=== PATIENT | female | born 1995 | race Caucasian/White ===

== ENCOUNTER → 2020-09-04 | Outpatient (CLI) | payer OTHER, SELFPAY ==
[2020-09-04 14:55] VITALS: BMI 26.2
[2020-09-04 17:08] LABS: Amphetamine Urine VISTA NEGATIVE (<1000 ng/mL); Barbiturate Urine VISTA NEGATIVE (< 200 ng/mL); Benzodiazepine Urine VISTA NEGATIVE (< 200 ng/mL); Cocaine Urine VISTA NEGATIVE (< 300 ng/mL); Ecstacy Urine VISTA NEGATIVE (< 500 ng/mL); Methadone Urine VISTA NEGATIVE (< 300 ng/mL); PCP Urine VISTA NEGATIVE (< 25 ng/mL); THC Urine VISTA NEGATIVE (< 50 ng/mL); Vista UDS pH Range 6
[2020-09-08 07:44] LABS: Chlamydia By Nucleic Acid AMP Negative (Negative)
[2020-09-08 08:03] LABS: Gonococcus By Nucleic Acid AMP Negative (Negative)
== END | disposition home or self-care (01) ==
PROVIDERS: Visit Provider Obstetrics & Gynecology
DX: Z34.00 Encounter for supervision of normal first pregnancy, unspecified trimester (principal); Z12.4 Encounter for screening for malignant neoplasm of cervix
CPT/HCPCS: 80307; 87086; 87088; 87491; 87591

== ENCOUNTER → 2020-10-02 12:55 | Outpatient (CLI) | payer OTHER, SELFPAY ==
[2020-09-04 14:55] VITALS: BMI 26.2
[2020-10-02 13:20] LABS: Absolute Lymphocyte Count 2.88 X10^3/uL (0.83-4.51); Absolute Neutrophil Count 8.7 X10^3/uL (2.0-7.7); Basophil# 0.04 X10^3/uL; Basophil% 0.3 % (0-1); Eosinophil# 0.15 X10^3/uL; Eosinophils% 1.2 % (0-5); Hematocrit 38.4 % (37-47); Lymphocyte # 2.88 X10^3/ul (4.0); Lymphocyte % 22.6 % (19-41); Mean Corp Hgb Conc 33.9 g/dL (32-36); Mean Corpuscular Hgb 29.4 pg (27.0-32.0); Mean Corpuscular Volume 86.9 fL (81-99); Mean Platelet Vol. 8.9 fl (6.2-12.0); Monocyte# 0.89 X10^3/uL; NRBC Flagged by Analyzer 0 % (0-5); Neutrophil # 8.73 X10^3/uL (2.7-7.7); Neutrophil % 68.5 % (47-70); Platelet Count 256 K/mm3 (150-450); RBC Distribution Width CV 13.5 % (11.6-14.6); RBC Distribution Width SD 42.5 fl (35.1-43.9); Red Blood Count 4.42 M/mm3 (4.2-5.4); White Blood Count 12.7 K/mm3 (4.4-11.0)
[2020-10-02 14:27] LABS: HIV - WCH Non-Reactive (Nonreactive); Hepatitis B Surface Antigen Non-Reactive (Nonreactive); Hepatitis C Antibody Non-Reactive (Nonreactive)
[2020-10-08 01:20] LABS: Rapid Plasmin Reagin (RPR) NONREACTIVE (NONREACTIVE)
== END ==
PROVIDERS: PCP Physician Assistant; Referring Provider Obstetrics & Gynecology; Visit Provider Obstetrics & Gynecology
DX: Z34.00 Encounter for supervision of normal first pregnancy, unspecified trimester (principal)
CPT/HCPCS: 36415; 85025; 86592; 86703; 86803; 86850; 86900; 86901; 87340

== ENCOUNTER → 2021-01-21 14:34 | Outpatient (CLI) | payer OTHER, SELFPAY ==
[2020-12-25 14:43] VITALS: BMI 31.8
[2021-01-21 14:50] LABS: Absolute Lymphocyte Count 2.24 X10^3/uL (0.83-4.51); Absolute Neutrophil Count 9.6 X10^3/uL (2.0-7.7); Basophil# 0.03 X10^3/uL; Basophil% 0.2 % (0-1); Eosinophil# 0.09 X10^3/uL; Eosinophils% 0.7 % (0-5); Hematocrit 35.4 % (37-47); Hemoglobin 11.8 g/dL (12.0-15.0); Lymphocyte # 2.24 X10^3/ul (4.0); Lymphocyte % 17.5 % (19-41); Mean Corp Hgb Conc 33.3 g/dL (32-36); Mean Corpuscular Hgb 30.1 pg (27.0-32.0); Mean Corpuscular Volume 90.3 fL (81-99); Monocyte# 0.78 X10^3/uL; Monocyte% 6.1 % (0-10); NRBC Flagged by Analyzer 0 % (0-5); Neutrophil # 9.57 X10^3/uL (2.7-7.7); Neutrophil % 74.6 % (47-70); Platelet Count 228 K/mm3 (150-450); RBC Distribution Width CV 13.7 % (11.6-14.6); RBC Distribution Width SD 44.7 fl (35.1-43.9); Red Blood Count 3.92 M/mm3 (4.2-5.4); White Blood Count 12.8 K/mm3 (4.4-11.0)
[2021-01-21 15:15] LABS: Glucose Challenge Gest 1H 50g 154 mg/dL (70-140)
[2021-01-22 08:43] LABS: Rubella IgG Reactive (Nonreactive)
== END ==
PROVIDERS: PCP Physician Assistant; Referring Provider Obstetrics & Gynecology; Visit Provider Obstetrics & Gynecology
DX: Z34.90 Encounter for supervision of normal pregnancy, unspecified, unspecified trimester (principal); Z01.84 Encounter for antibody response examination
CPT/HCPCS: 36415; 82950; 85025; 86762

== ENCOUNTER → 2021-01-25 06:46 | Outpatient (CLI) | payer OTHER, SELFPAY ==
[2021-01-21 15:08] VITALS: BMI 33.7
[2021-01-25 07:36] LABS: Glucose GTT-Gestation. Fasting 97 mg/dL (<105)
[2021-01-25 10:06] LABS: Glucose GTT-Gestational 1 Hr 198 mg/dL (<190)
[2021-01-25 10:06] LABS: Glucose GTT-Gestational 2 Hr 167 mg/dL (<165)
[2021-01-25 11:07] LABS: Glucose GTT-Gestational 3 Hr 117 L (<145)
== END ==
PROVIDERS: PCP Physician Assistant; Referring Provider Nurse Practitioner Women's Health; Visit Provider Nurse Practitioner Women's Health
DX: Z13.1 Encounter for screening for diabetes mellitus (principal)
CPT/HCPCS: 36415; 82951; 82952

== ENCOUNTER → 2021-02-17 13:40 | Outpatient (CLI) | payer OTHER, SELFPAY ==
[2021-02-03 10:58] VITALS: BMI 33.7
[2021-02-17 10:59] VITALS: BMI 33.6
--- NOTE | 2021-02-17 13:41 | US_ITS ---
STUDY: SECOND AND THIRD TRIMESTER OBSTETRICAL ULTRASOUND - LIMITED REASON FOR EXAM: Female, 26 years old. growth. LMP: 07/10/2020. PRIOR ULTRASOUND: None. TECHNIQUE: TECHNICAL QUALITY: Adequate. FINDINGS: There is a single intrauterine fetus. The fetus is in a cephalic presentation. There is demonstrated cardiac activity with a heart rate of 35 bpm. There is a normal amniotic fluid volume. The largest amniotic fluid pocket measures 5.03 cm. The amniotic fluid index (FERNIE) is 12.84 cm. The placenta is anterior in location and is not low lying. There are Grade 1 placental changes. The cervix measures 3.13 cm in length. BIOMETRY: BPD: 7.98 cm: 32 weeks, 0 days HC: 29.61 cm: 32 weeks, 5 days AC: 27.59 cm: 31 weeks, 4 days FL: 5.91 cm: 30 weeks, 5 days Age by LMP: 31 weeks, 5 days. JORJE by LMP: 04/16/2021. age by current US: 31 weeks, 6 days. JORJE by current US: 04/15/2021. Estimated weight: 1791 grams, +/- 269 grams, 30 percentile. Gender: Indeterminant US/OB Limited With Biometrics IMPRESSION: 1. Live single intrauterine at 31 weeks, 6 days. JORJE is 04/16/2021. This correlates with expected gestational age by LMP. 2. EFW of 1791 g. 3. FERNIE of 12.84 cm. 4. Anterior grade 1 placenta. 5. VERTEX presentation. Electronically Signed: Gómez Aggarwal DO at 22:36 EDT Tel [phone], Service support ,
== END ==
PROVIDERS: PCP Physician Assistant; Referring Provider Obstetrics & Gynecology; Visit Provider Obstetrics & Gynecology
DX: O24.419 Gestational diabetes mellitus in pregnancy, unspecified control (principal); Z3A.31 31 weeks gestation of pregnancy
CPT/HCPCS: 76816

== ENCOUNTER → 2021-03-19 13:15 | Outpatient (CLI) | payer OTHER, SELFPAY ==
[2021-02-03 10:58] VITALS: BMI 33.7
[2021-03-05 14:48] VITALS: BMI 34.0
--- NOTE | 2021-03-19 13:18 | US_ITS ---
STUDY: SECOND AND THIRD TRIMESTER OBSTETRICAL ULTRASOUND REASON FOR EXAM: Female, 26 years old growth LMP: 07/10/2020. TECHNIQUE: Transabdominal TECHNICAL QUALITY: Adequate. PRIOR ULTRASOUND: Comparison is made with prior study dated 02/17/2021. FINDINGS: There is a single intrauterine fetus. The fetus is in a cephalic presentation. There is demonstrated cardiac activity with a heart rate of 123 bpm. There is a normal amniotic fluid volume. The largest amniotic fluid pocket measures 4.1 cm. The amniotic fluid index (FERNIE) is 11.44 cm. The placenta is anterior in location and is not low lying. There are Grade 1 placental changes. The adnexal regions are not visualized. BIOMETRY: BPD: 8.74 cm: 35 weeks, 2 days HC: 31.44 cm: 35 weeks, 1 days AC: 32.9 cm: 36 weeks, 5 days FL: 6.44 cm: 33 weeks, 1 days CI: 83% FL/BPD: 74% FL/HC: FL/AC: 20% HC/AC: 0.96 age by current US: 34 weeks, 5 days. JORJE by current US: 04/25/2021. Estimated weight: 2753 grams, +/- 413 grams, 44 %. age by prior US: 36 weeks, 1 days. JORJE by prior US: 04/15/2021. Age by LMP: 36 weeks, 0 days. JORJE by LMP: 04/16/2021. US/OB Limited With Biometrics IMPRESSION: Single live intrauterine gestation with mean gestational age of 36 weeks and 1 day. The measurements obtained today follow within normal expected range. Electronically Signed: Ganga Justin MD at 14:58 EDT , Service support ,
== END ==
PROVIDERS: PCP Physician Assistant; Referring Provider Obstetrics & Gynecology; Visit Provider Obstetrics & Gynecology
DX: O24.419 Gestational diabetes mellitus in pregnancy, unspecified control (principal); Z3A.36 36 weeks gestation of pregnancy
CPT/HCPCS: 76816; 87081

== ENCOUNTER → 2021-04-09 15:15 | Outpatient (CLI) | payer OTHER, SELFPAY ==
[2021-03-05 14:48] VITALS: BMI 34.0
[2021-04-09 14:36] VITALS: BMI 34.0
== END ==
PROVIDERS: Obstetrics & Gynecology; PCP Physician Assistant; Visit Provider Obstetrics & Gynecology
DX: Z34.93 Encounter for supervision of normal pregnancy, unspecified, third trimester (principal)
CPT/HCPCS: 87635; C9803; U0002

== ENCOUNTER 2021-04-16 07:05 | Inpatient (IN) | payer OTHER, SELFPAY ==
[2021-04-02 14:52] VITALS: BMI 34.0
[2021-04-09 14:36] VITALS: BMI 34.0
[2021-04-16] VITALS (42 sets, daily range): BP systolic 118–176; BP diastolic 59–95; PULSE 79–145; RESP 18; TEMP 36.6–37.2; O2SAT 83–100; BMI 34.6
[2021-04-16] MEDS: Lactated Ringers 1,000 ML 50 ML IV (07:30)
--- NOTE | 2021-04-16 07:46 | HP.PCM.OB_ITS ---
HPI - General General Date of Admission: 04/16/21 HPI Narrative KENDRA HUBER, is a 26 F who presents as a at 40 weeks presents for induction of labor secondary to GDM A1 well controlled with diet. She denies any vaginal bleeding loss of fluid admits good movement and having regular contractions. Maternal Data Information JORJE Calculator Estimated Delivery Date Method Current WG Current Estimate 04/16/21 Ultrasound #1 40w 0d Other Estimates 04/07/21 LMP (Certain) 41w 2d [facility] Medical History (Updated 04/16/21 @ 07:[address] Luz Esetban MD) No significant medical problems Home Medications multivitamin no.47-iron fum 27 mg-folate no.1 1 mg-dha 300 mg capsule cap PO 08/31/20 [History Last Taken Unknown] blood-glucose meter #1 ea 01/25/21 [Rx Last Taken Unknown] blood sugar diagnostic #100 ea 02/16/21 [Rx Last Taken Unknown] Allergy/AdvReac Type Severity Reaction Status Date / Time aspirin Allergy Intermediate Angioedema Verified 04/02/21 14:51 Surgical History H/O knee surgery (~2018) Social History household members: spouse current occupational status: employed current occupation: [employer] pets and animals: Yes Smoking Status: Never smoker second hand exposure: No alcohol intake: never substance use type: does not use seatbelt use: always do you feel safe at home: Yes 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 questions answered. special requests: [] Plans flu vaccine: declined tdap vaccine: given rhogam: na LARC form signed: yes movement and labor precautions reviewed. Problem list reviewed and updated with the most current plan of care details and appropriate orders placed. Relevant counseling for the gestational age provided. Continue routine care and follow up unless otherwise noted in visit notes/problem list details OB Flowsheet Initial Weight: 143 lb Date -?-?-?-?-?-?-?-?-?-?-?-?- EGA Weight BP Urine Prot -?-?-?-?-?-?-?-?-?-?-?-?- Glucose FHR FuHt Pres Dilation -?-?-?-?-?-?-?-?-?-?-?-?- Effaced St Visit Note 09/04/20 -?-?-?-?-?-?-?--?-?-?-?-?- 8w 0d 143 lb 4 oz (+4 oz) 140/82 140/82 -?-?-?-?-?-?-?-?-?-?-?-?- 170 -?-?-?-?-?-?-?-?-?-?-?-?- GP - CRL 15mm NO T consistent with LMP 10/02/20 -?-?-?-?-?-?-?-?-?-?-?-?- 12w 0d 148 lb 8 oz (+5 lb 8 oz) 144/80 Negative -?-?-?-?-?-?-?-?-?-?-?-?- Negative 160 -?-?-?-?-?-?-?-?-?-?-?-?- GP - no cramping or bleeding. Anatomy scan ordered. Declines genetic testing. 10/29/20 -?-?-?-?-?-?-?-?-?-?-?--?- 15w 6d 155 lb 8 oz (+12 lb 8 oz) 150/88 -?-?-?-?-?-?-?-?-?-?-?-?- 150 -?-?-?-?-?-?-?-?-?-?-?-?- Sm- no vb crampi ng. 12/31/20 -?-?-?-?-?-?-?-?-?-?-?-?- 19w 6d 164 lb 8 oz (+21 lb 8 oz) 158/88 Negative -?-?-?-?-?-?-?-?-?-?-?-?- Negative 150 -?-?-?-?-?-?-?-?-?-?-?-?- GP - no cramping or bleeding. +FM. GP - no cramping or bleeding . +FM. Awaiting anatomy report. 12/25/20 -?-?-?-?-?-?-?-?-?-?-?-?- 24w 0d 174 lb (+31 lb) 112/58 Negative -?-?-?-?-?-?-?-?-?-?-?-?- Negative 145 24 -?-?-?-?-?-?-?-?-?-?-?-?- SM- no vb lof go od fm no regular ctx 01/21/21 -?-?-?-?-?-?-?-?-?-?-?-?- 27w 6d 184 lb 4 oz (+41 lb 4 oz) 145/86 Negative -?-?-?-?-?-?-?-?-?-?-?-?- Negative 141 28 -?-?-?-?-?-?-?-?-?-?-?-?- MH-NO Vb, LOF. G ood FM. 28 wk labs, tdap, larc 02/03/21 -?-?-?-?-?-?-?-?-?-?-?-?- 29w 5d 184 lb 8 oz (+41 lb 8 oz) 130/84 Negative -?-?-?-?-?-?-?-?-?-?-?-?- Negative 135 29 -?-?-?-?-?-?-?-?-?-?-?-?- GP - no LOF, VB, DFM, ctx. Discussed gestational diabetes - discussed timing of delivery depending glycemic control. Discussed growth ultrasounds. Discussed could require NSTs if needs medication. Going to [place] for vacation next week. 02/17/21 -?-?-?-?-?-?-?-?-?-?-?-?- 31w 5d 184 lb (+41 lb) 116/92 Negative -?-?-?-?-?-?-?-?-?-?-?-?- Negative 135 32 -?-?-?-?-?-?-?-?-?-?-?-?- SM- no vb lof go od fm no regular ctx, gdm well controlled with diet 03/05/21 -?-?-?-?-?-?-?-?-?-?-?-?- 34w 0d 186 lb 6 oz (+43 lb 6 oz) 150/76 118/75 Trace -?-?-?-?-?-?-?-?-?-?-?-?- Negative 135 34 -?-?-?-?-?-?-?-?-?-?-?-?- SM- no vb lof go od fm no reuglar ctx bs well controlled nl bps at home with verified cuff 03/19/21 -?-?-?-?-?-?-?-?-?-?-?-?- 36w 0d 186 lb (+43 lb) 132/88 Negative -?-?-?-?-?-?-?-?-?-?-?-?- Negative 120 36 Cephalic 2 -?-?-?-?-?-?-?-?-?-?-?-?- 70 -2 GP - no LO F, VB, dFM, ctx. GBS today. BGTs controlled with diet. 03/23/21 -?-?-?-?-?-?-?-?-?-?-?-?- 36w 4d 188 lb (+45 lb) 114/70 Negative -?-?-?-?-?-?-?-?-?-?-?-?- Negative 134 37 Cephalic 2 -?-?-?-?-?-?-?-?-?-?-?-?- -2 MH-No VB , LOF. Good FM. No reg CTX 04/02/21 -?-?-?-?-?-?-?-?-?-?-?-?- 38w 0d 190 lb (+47 lb) 138/86 Negative -?-?-?-?-?-?-?-?-?-?-?-?- Negative 120 38 Cephalic 3 -?-?-?-?-?-?-?-?-?-?-?-?- 70 -2 GP - no LO F, VB, DFM, ctx. Discussed IOL at 40w unless spontaneous labor. Initial BP elevated - repeat nl. Asymptomatic. 04/09/21 -?-?-?-?-?-?-?-?-?-?-?-?- 39w 0d 190 lb (+47 lb) 134/86 Negative -?-?-?-?-?-?-?-?-?-?-?-?- Negative 125 39 3 -?-?-?-?-?-?-?-?-?-?-?-?- 70 -4 SM- no vb lof good fm irregular ctx well controled bs. plan IOL pitocin at 40 weeks 04/16/21 -?-?-?-?-?-?-?-?-?-?-?-?- 40w 0d 189 lb 4 oz (+46 lb 4 oz) 142/89 -?-?-?-?-?-?-?-?-?-?-?-?- -?-?-?-?-?-?-?-?-?-?-?-?- NST FHR Rate Baby A Baseline: 130 Variability:: Moderate Accelerations:: 15 x 15 Decelerations:: None NST Reactive:: Yes FHR Category:: Category I Uterine Activity:: irregular ROS Constitutional Constitutional: Reports systems reviewed and no addt'l complaints, except as documented Eyes Eyes: Denies change in vision ENT HEENT: Reports systems reviewed and no addt'l complaints, except as documented; Denies headache(s) Cardiovascular Cardiovascular: Reports systems reviewed and no addt'l complaints, except as documented; Denies chest pain or dyspnea Respiratory/Chest Respiratory/Chest: Reports systems reviewed and no addt'l complaints, except as documented Gastrointestinal Gastrointestinal: Reports systems reviewed and no addt'l complaints, except as documented; Denies abdominal pain Genitourinary Genitourinary: Reports systems reviewed and no addt'l complaints, except as documented, contractions Details: present (irregular) and movement Details: present; Denies dysuria or genital lesions Musculoskeletal Musculoskeletal: Reports systems reviewed and no addt'l complaints, except as documented Neurologic Neurologic: Reports systems reviewed and no addt'l complaints, except as documented Endocrine Endocrinology: Reports systems reviewed and no addt'l complaints, except as documented Vital Signs Vital Signs Vital Signs: 04/16/21 07:41 04/16/21 07:42 04/16/21 07:44 Temperature 98.8 F Temperature Source Temporal Pulse Rate 117 H 120 H Blood Pressure 142/89 H BP Systolic 142 BP Diastolic 89 Pulse Ox 97 Physical Exam Const alert, oriented x3, no apparent distress and healthy appearing HEENT normocephalic and moist oral mucous membranes Head and Scalp: atraumatic Neck full ROM, no lymphadenopathy, supple and thyroid normal General: trachea midline Lymph Lymphatic: no lymphadenopathy noted Chest inspection of chest normal Resp normal respiratory effort Cardio regular rate GI normal to inspection, nondistended, normoactive bowel sounds, soft to palpation and non-tender Inspection: gravid external exam normal Manual OB Exam: estimated gestational size appropriate, presentation cephalic, dilated 3, effaced 60 and station -2 Extremity normal to inspection General Extremity: Negative for edema Skin no rashes or lesions noted Neuro no focal motor deficits and deep tendon reflexes 2+ bilaterally Motor Exam: strength 5/5 throughout and clonus absent Psych mental status grossly normal Labs Labs Labs: Blood Type O POSITIVE Antibody Screen NEGATIVE Hct 35.4 % (37-47) L Hgb 11.8 g/dL (12.0-15.0) L Obstetrics US Rubella IgG Antibody Reactive (Nonreactive) Hep Bs Antigen Non-Reactive (Nonreactive) Neisseria gonorrhoeae DNA (MORGAN) Negative (Negative) HIV 1&2 Antibody Non-Reactive (Nonreactive) Glucose 1 Hr 50 gm 154 mg/dL (70-140) H Assessment & Plan (1) 33 weeks gestation of : COMMENT: COVID test ordered 03/03/21 (ashlyn 04/09 at 2:20pm) neg. (2) Gestational diabetes: QUALIFIERS: Gestational diabetes mellitus control: diet-controlled Trimester: third trimester Qualified Code(s): O24.410 - Gestational diabetes mellitus in , diet controlled COMMENT: Referred to Dr. Nevarez. Declined bread dough mixer consult. q4 growth ultrasounds starting at 32w. Diet controlled. Delivery by 40w. EFW 44%ile 03/19 (3) Family history of cleft lip: COMMENT: Nephew with cleft lip. (4) Influenza vaccination declined: (5) Supervision of normal first , antepartum: COMMENT: PRR JORJE 04/07/2021 boy Spouse: Dino (6) : QUALIFIERS: Weeks of gestation: 39 weeks Qualified Code(s): Z3A.39 - 39 weeks gestation of COMMENT: declines carrier, NIPT, and NTD; NL anatomy (7) Encounter for induction of labor: PLAN: Patient presents IOL, plan management for with pitocin/AROM. Pain management: Plans epidural. GBS negative. Management of any complications: GDM A1 check blood sugars every 4 hours and latent phase and every 1 hour in active phase of labor I have reviewed the [facility] and made any clinically relevant updates.
[2021-04-16 07:50] LABS: Absolute Lymphocyte Count 1.53 X10^3/uL (0.83-4.51); Absolute Neutrophil Count 8.9 X10^3/uL (2.0-7.7); Basophil# 0.04 X10^3/uL; Basophil% 0.3 % (0-1); Eosinophil# 0.15 X10^3/uL; Eosinophils% 1.3 % (0-5); Hematocrit 40.8 % (37-47); Hemoglobin 13.5 g/dL (12.0-15.0); Lymphocyte # 1.53 X10^3/ul (0.83-4.51); Lymphocyte % 13.4 % (19-41); Mean Corp Hgb Conc 33.1 g/dL (32-36); Mean Corpuscular Hgb 29.5 pg (27.0-32.0); Mean Corpuscular Volume 89.1 fL (81-99); Mean Platelet Vol. 9.6 fl (6.2-12.0); Monocyte# 0.78 X10^3/uL; Monocyte% 6.8 % (0-10); NRBC Flagged by Analyzer 0 % (0-5); Neutrophil # 8.89 X10^3/uL (2.7-7.7); Neutrophil % 77.7 % (47-70); Platelet Count 212 K/mm3 (150-450); RBC Distribution Width CV 13.6 % (11.6-14.6); RBC Distribution Width SD 44.2 fl (35.1-43.9); Red Blood Count 4.58 M/mm3 (4.2-5.4); White Blood Count 11.5 K/mm3 (4.4-11.0)
[2021-04-16] MEDS: Oxytocin 30 units/NS 500 ml 30 UNITS/500 ML IV.SOLN IV (07:51)
[2021-04-16 08:00] LABS: Bedside Glucose 97 mg/dL (70-110)
[2021-04-16 08:55] LABS: Bedside Glucose 92 mg/dL (70-110)
[2021-04-16] MEDS: Lactated Ringers 500 ML 999 ML IV ×2 (11:10→13:34)
[2021-04-16] MEDS: fentaNYL-bupivacaine (epidural) 100 ML BAG EPIDURAL (12:13)
[2021-04-16] MEDS: Oxytocin 30 units/NS 500 ml 30 UNITS/500 ML IV.SOLN 334 UNITS IV (13:57)
--- NOTE | 2021-04-16 14:04 | OP.PCM_ITS ---
Maternal Data Information JORJE Calculator Estimated Delivery Date Method Current WG Current Estimate 04/16/21 Ultrasound #1 40w 0d Other Estimates 04/07/21 LMP (Certain) 41w 2d Details Operative Information Date of Procedure: 04/16/21 Vaginal Delivery Maternal Presentation Maternal Presentation: Medically Indicated Induction Maternal Presentation: 40 weeks Type of Induction: Pitocin Medical Reason for Induction: Maternal Medical Condition: list: (diabetes) Operative Information Date of Procedure: 04/16/21 Pre-Operative Diagnosis: iol gdma Post-Operative Diagnosis: same Surgery / Procedure Performed: Spontaneous Vaginal Delivery Type of Anesthesia: Epidural Special Medications: none Estimated Blood Loss: 100 Fluids Replaced: crystalloid Findings Description of Procedure: Patient began pushing and delivered the head in the DIANA presentation. The head was delivered atraumatically and a loose nuchal cord ?1 was identified and the delivered through without complication. The anterior and posterior shoulders delivered without complication followed by the rest of the infant and the was placed on the maternal abdomen. Delayed cord clamping was employed for approximately 60 seconds. Cord was clamped and cut and gentle traction was applied to the cord and the placenta delivered spontaneously immediately following it was noted to be intact with three-vessel cord. The perineum and vagina were inspected and noted to have no laceration. EBL was 100 cc. Patient and tolerated delivery well. Presentation: DIANA Amniotic Membrane Rupture Type: Artificial Amniotic Fluid Description: Clear Placental Delivery Description: Spontaneous Placenta Disposition: [facility] Cord Vessel Description: 3 Vessels Cord Entanglement: None Delayed Cord Clamping: Yes Post Vaginal Delivery Medications Given After Delivery: IV Pitocin Episiotomy Description: None Laceration: None Complication Complications: None Procedures Urinary/Genital [id number]: [id number] Vaginal Delivery [facility]
[2021-04-16 14:20] LABS: Bedside Glucose 87 mg/dL (70-110)
[2021-04-16 14:20] LABS: Bedside Glucose 92 mg/dL (70-110)
[2021-04-16 15:25] LABS: Bedside Glucose 83 mg/dL (70-110)
[2021-04-17 00:10] VITALS: BP 119/69; PULSE 86; RESP 16; TEMP 36.3
[2021-04-17 04:14] VITALS: BP 114/60; PULSE 89; RESP 16; TEMP 36.2
[2021-04-17 06:01] LABS: Bedside Glucose 87 mg/dL (70-110)
--- NOTE | 2021-04-17 07:43 | PCM.PN.OB ---
Subjective Subjective Patient doing well without complaints. Tolerating PO. Ambulating and voiding without difficulty. feeding well. Denies chest pain, shortness of breath, calf pain/swelling, fevers, chills, lightheadedness. Objective Data Objective Data Vital Signs: Vital Signs Temp Pulse Resp BP Pulse Ox 97.2 F L 89 16 114/60 83 04/17/21 04:14 04/17/21 04:14 04/17/21 04:14 04/17/21 04:14 04/16/21 12:40 Oxygen Delivery Method Room Air Weight: 189 lb 4 oz Body Mass Index (BMI) 34.6 Intake & Output: Intake and Output for Last 24 Hours 04/15/21 04/16/21 04/17/21 23:59 23:59 23:59 Intake Total 2281.07 / 2281.07 Output Total 1000 / 1000 Balance 1281.07 / 1281.07 Lab / Micro Data Result Diagrams: 04/16/21 07:30 Labs: Laboratory Results - last 24 hr 04/16/21 04/16/21 04/16/21 07:30 07:30 07:43 WBC 11.5 H RBC 4.58 Hgb 13.5 Hct 40.8 MCV 89.1 MCH 29.5 MCHC 33.1 RDW Std Deviation 44.2 H RDW Coeff of Nohemi 13.6 Plt Count 212 MPV 9.6 Immature Gran % (Auto) 0.500 Neut % (Auto) 77.7 H Lymph % (Auto) 13.4 L [place] % (Auto) 6.8 Eos % (Auto) 1.3 Baso % (Auto) 0.3 Absolute Neuts (auto) 8.9 H Absolute Lymphs (auto) 1.53 Nucleated RBC % 0 POC Glucose 97 Blood Type O POSITIVE Antibody Screen NEGATIVE 04/16/21 04/16/21 04/16/21 08:46 12:26 13:29 WBC RBC Hgb Hct MCV MCH MCHC RDW Std Deviation RDW Coeff of Nohemi Plt Count MPV Immature Gran % (Auto) Neut % (Auto) Lymph % (Auto) [place] % (Auto) Eos % (Auto) Baso % (Auto) Absolute Neuts (auto) Absolute Lymphs (auto) Nucleated RBC % POC Glucose 92 87 92 Blood Type Antibody Screen 04/16/21 04/17/21 14:46 05:54 WBC RBC Hgb Hct MCV MCH MCHC RDW Std Deviation RDW Coeff of Nohemi Plt Count MPV Immature Gran % (Auto) Neut % (Auto) Lymph % (Auto) [place] % (Auto) Eos % (Auto) Baso % (Auto) Absolute Neuts (auto) Absolute Lymphs (auto) Nucleated RBC % POC Glucose 83 87 Blood Type Antibody Screen ROS Constitutional Constitutional: Reports systems reviewed and no addt'l complaints, except as documented Cardiovascular Cardiovascular: Reports systems reviewed and no addt'l complaints, except as documented Respiratory/Chest Respiratory/Chest: Reports systems reviewed and no addt'l complaints, except as documented Gastrointestinal Gastrointestinal: Reports systems reviewed and no addt'l complaints, except as documented Physical Exam Const alert, oriented x3 and no apparent distress HEENT Head and Scalp: atraumatic Resp normal respiratory effort GI soft to palpation and non-tender Bimanual Exam - Vag & Uterus: uterus non-tender Uterus Palpation: uterus fundus firm (below Umbilicus) Assessment & Plan (1) Vaginal delivery: COMMENT: IOL GDMA SM (2) Gestational diabetes: QUALIFIERS: Gestational diabetes mellitus control: diet-controlled Trimester: third trimester Qualified Code(s): O24.410 - Gestational diabetes mellitus in , diet controlled COMMENT: Referred to Dr. Nevarez. 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 q4 growth ultrasounds starting at 32w. Diet controlled. Delivery by 40w. EFW 44%ile 03/19 PLAN: s/p PPD # 1 1. routine post delivery care 2. breast feeding- support given 3. rh positive 4. rubella immune FBS- 87
--- NOTE | 2021-04-17 07:45 | PCM.DC ---
Discharge Instructions Diet Discharge Diet: No restrictions Activity Discharge Activity: Return to Normal Activity, May not drive while taking narcotic pain medications. and May Shower May resume sexual activity in: 4-6 weeks Dressing / Incision Call your doctor if your incision/area has: Continuous Slow Oozing, Sudden Increased Bleeding, Increased Pain/ Swelling, Increased Redness and Foul Smelling Discharge Follow Up Care Please Follow Up With: Luz Esteban MD When: Call [phone] to make an appointment with your doctor in 6 weeks. If you had elevated blood pressure or 4th degree laceration, you will need to be seen in 2 weeks. Test Results: Test results from this visit will be discussed in further detail at your follow-up appointment, if applicable. Discharge Plan Admission Admit Date/Time: 04/16/21 07:05 Primary Reason for Your Visit: vaginal delivery Attending Provider: Luz Esteban Primary Care Provider: Parris Silva Instructions Patient Instructions: After a Vaginal Discharge Orders/Prescriptions Prescriptions: New naproxen 500 mg Tablet 500 mg PO Q8H PRN PRN (Reason: Pain Score 1-3) Qty: 30 RF: 0 Continued PNV-DHA 27 mg iron-1 mg -300 mg capsule 1 cap PO DAILY RF: 0 No Action (DME) [employer] Test Strip See Rx Instructions MISCELLANEOUS RF: 0 (DME) blood-glucose meter [[employer] Blood Glucose System] Kit See Rx Instructions MISCELLANEOUS RF: 0 Referrals / Follow Up: Luz Esteban MD [STAFF PHYSICIAN] - Parris Silva PA [Primary Care Provider] - Disposition Disposition (needs filled in before D/C Order can be placed): Home, self care
[2021-04-17 08:00] VITALS: BP 125/73; PULSE 107; RESP 16; TEMP 36.4
[2021-04-17 12:30] VITALS: BP 128/69; PULSE 91; RESP 20; TEMP 36.1
== END 2021-04-17 16:15 | disposition home or self-care (01) | DRG 807 ==
PROVIDERS: Admitting Provider Obstetrics & Gynecology; PCP Physician Assistant; Visit Provider Obstetrics & Gynecology
DX: O24.420 Gestational diabetes mellitus in childbirth, diet controlled (principal); Z37.0 Single live birth; O69.81X0 Labor and delivery complicated by cord around neck, without compression, not applicable or unspecified; Z28.21 Immunization not carried out because of patient refusal; Z3A.40 40 weeks gestation of pregnancy
CPT/HCPCS: 59025; 59050; 82962; 85025; 86850; 86900; 86901; 99218; J7120; G0378

== ENCOUNTER → 2021-06-03 16:29 | Outpatient (CLI) | payer OTHER, SELFPAY ==
[2021-06-03 10:08] VITALS: BMI 34.6
[2021-06-08 11:38] LABS: HPV Reflexed? NOT INDICATED
== END ==
PROVIDERS: Obstetrics & Gynecology; PCP Physician Assistant; Referring Provider Obstetrics & Gynecology; Visit Provider Obstetrics & Gynecology
DX: Z12.4 Encounter for screening for malignant neoplasm of cervix (principal)
CPT/HCPCS: 88175; G0145